=== PATIENT | male | born 1995 | race Two or more races ===

== ENCOUNTER 2025-05-06 15:26 | Emergency (ER) | payer OTHER ==
[~2025-05-06] VITALS: Ht 182.9 cm; Wt 65.3 kg
[2025-05-06] MEDS ORDERED: KETOROLAC TROMETHAMINE 60 MG VIAL IM ONE (16:15)
[2025-05-06] MEDS ORDERED: ORPHENADRINE CITRATE 30 MG/ML AMPUL IM ONE (16:15)
[2025-05-06 17:15] LABS: BASO % 0.6 % (0.1-1.2); EOS # 0.24 (0.04-0.54); EOS % 4.7 % (0.7-7.0); LYMPH # 1.36 (1.18-3.74); LYMPH % 26.4 % (19.3-53.1); MEAN PLATELET VOLUME 10.50 fl (9.4-12.4); MONO # 0.39 (0.24-0.82); MONO % 7.6 % (4.7-12.5); NEUT # 3.12 (1.56-6.13); NEUT % 60.5 % (34.0-71.1); RED CELL DISTRIBUTION WIDTH 12.3 % (11.6-14.4)
[2025-05-06 18:04] LABS: BUN CREA RATIO 11.0 (7.0-25.0); CREATININE SERUM 1.02 mg/dL (0.70-1.30); GFR 86.35; GLUCOSE FASTING 93.0 mg/dL (65-100); OSMOLALITY SERUM 280.0 MOSM/KG (275-295)
[2025-05-06] MEDS ORDERED: NORFLEX100MG PO (18:14)
[2025-05-06] MEDS ORDERED: DICLOFENAC SODI75 MG PO (18:14)
== END 2025-05-06 18:26 | disposition home or self-care (01) ==
LOC: ER 16:01
PROVIDERS: General Practice
DX: M54.2 Cervicalgia (principal); Z91.018 Allergy to other foods